=== PATIENT | male | born 1950 | race Caucasian/White ===

== ENCOUNTER 2023-12-12 12:40 | Inpatient (IN) | payer BC, MEDICARE, SELFPAY ==
[2023-12-12 13:24] LABS: #Basophils Less than 0.03 10x3/uL (0.0-0.2); %Basophils 0.2 % (0.0-1.0); %Eosinophils 0.7 % (0.0-10.0); %Lymphocytes 8.4 % (21.0-51.0); %Monocytes 18.2 % (0.0-10.0); %Neutrophils 72.1 % (42.0-75.0); Hematocrit 41.3 % (42.0-52.0); Hemoglobin 14.8 g/dL (14.0-18.0); Mean Corpuscular HGB CONC 35.8 g/dL (32.0-36.0); Mean Corpuscular Hemoglobin 35.7 pg (27.0-31.0); Mean Corpuscular Volume 99.5 fL (78.0-98.0); Mean Platelet Volume 9.8 fL (7.4-10.4); Platelet Count 192 10x3/uL (130-400); RBC Distribution Width 13.5 % (11.5-14.5); Red Blood Cell (RBC) Count 4.15 mill/uL (4.70-6.10)
[2023-12-12 13:39] LABS: ALT (SGPT) 27 U/L (8-55); AST (SGOT) 41 U/L (5-34); Albumin 3.2 g/dL (3.4-4.8); Alkaline Phosphatase 88 U/L (40-110); Anion Gap 20 mmol/L (10-20); BUN (Urea Nitrogen) 31 mg/dL (8.4-25.7); Bilirubin, Total 1.3 mg/dL (0.2-1.2); Calc. Creatinine Clearance 0 mL/min (70-130); Calcium 9.1 mg/dL (7.8-10.44); Carbon Dioxide 18 mmol/L (23-31); Chloride 98 mmol/L (98-107); Estimated GFR 71; Globulin 4.2 g/dL (2.4-3.5); Glucose 106 mg/dL (83-110); Potassium 4.1 mmol/L (3.5-5.1); Protein, Total 7.4 g/dL (5.8-8.1); Sodium 132 mmol/L (136-145)
[2023-12-12 13:42] LABS: Troponin I 0.041 ng/mL (< 0.028)
[2023-12-12 14:03] LABS: Magnesium 2.3 mg/dL (1.6-2.6)
[2023-12-12] MEDS ORDERED: Propofol 1,000 MG/100 ML VIAL IV ONE ×2 (14:08→15:52)
[2023-12-12] MEDS ORDERED: Ketamine In 0.9 % NaCl 50 MG/5 ML SYRINGE ONE (14:08)
[2023-12-12] MEDS ORDERED: PROPOFOL 20 ML ONE (14:22)
[2023-12-12] MEDS ORDERED: Lidocaine 1% w/Epinephrine 1:100K 20 ML VIAL ONE (14:42)
[2023-12-12] MEDS ORDERED: Etomidate 40 MG (20 mL) VIAL ONE (15:49)
[2023-12-12] MEDS ORDERED: Rocuronium Bromide 10 MG/ML (10ML VIAL) ONE (15:49)
[2023-12-12] MEDS ORDERED: Furosemide 40 MG (4 mL) VIAL ONE (16:10)
[2023-12-12] MEDS ORDERED: Dexamethasone 10 MG/ML VIAL ONE (16:14)
[2023-12-12] MEDS ORDERED: Fentanyl CADD 100 ML IV SCH (16:15)
[2023-12-12] MEDS ORDERED: fentaNYL 50 mcg/mL 1 mL Vial ONE (16:18)
[2023-12-12] MEDS ORDERED: Nitroglycerin 50 MG/250 ML BOT 250 ML ONE (16:18)
[2023-12-12 16:23] LABS: Actual Bicarbonate (HCO3a) 18.1 mEq/L (22-28); Analyzer IN Cardio ER; Base Excess (BEa) -7.7 mEq/L (-2.0 to +3.0); CO2 Tension 38.2 mmHg (35.0-45.0); Carboxyhemoglobin (COHb) 0.9 gm% (0.0-3.0); Hematocrit-ABG 42 % (42.0-52.0); Hemoglobin (Hb) 14.2 g/dL (14.0-18.0); Potassium - ABG Lab 3.87 mmol/L (3.70-5.30); pH, Arterial 7.294 (7.35-7.45)
[2023-12-12 16:26] LABS: Puncture Site Right Radial
[2023-12-12] MEDS ORDERED: traMADol HCl 50 MG TAB PO PRN (17:34)
[2023-12-12] MEDS ORDERED: Morphine 2 MG/ML VIAL SLOW IVP PRN ×2 (17:34→19:30)
[2023-12-12] MEDS: Propofol 1,000 MG/100 ML VIAL IV PRN (19:00)
[2023-12-12] MEDS: NOREPINEPHRINE 8 MG/250 ML-D5W 250 ML ONE (19:10)
[2023-12-12] MEDS: Sodium Chloride 0.9% 1,000 ML IV SCH (19:10)
[2023-12-12] MEDS ORDERED: Ventilator Sedation Protocol FS SCH (19:23)
[2023-12-12] MEDS ORDERED: Electrolyte Replacement Protocol FS SCH (19:26)
[2023-12-12] MEDS ORDERED: Dextrose 5% in Water 1,000 ML IV PRN (19:26)
[2023-12-12] MEDS ORDERED: Glucagon 1 MG/ML KIT IM PRN (19:26)
[2023-12-12] MEDS ORDERED: NOREPINEPHRINE 8 MG/250 ML-D5W 250 ML IVPB SCH (19:30)
[2023-12-12] MEDS ORDERED: Propofol BOLUS 1,000 MG/100 ML VIAL IV PRN (19:30)
[2023-12-12] MEDS ORDERED: DISCONTINUE PREVIOUS NARCOTIC PAIN MEDICATIONS AND BENZODIAZEPINES FS SCH (19:30)
[2023-12-12] MEDS ORDERED: Morphine 4 MG/ML VIAL SLOW IVP PRN (19:30)
[2023-12-12] MEDS ORDERED: Fentanyl BOLUS 250 ML IVPB PRN (19:30)
[2023-12-12] MEDS: Lactated Ringer's 1,000 ML IV SCH (19:53)
[2023-12-12] MEDS: Famotidine 20 MG TAB PER TUBE SCH (21:03)
[2023-12-13] MEDS: Ipratropium/Albuterol 3 ML NEB NEB SCH (00:49)
[2023-12-13 04:03] LABS: #Basophils Less than 0.03 10x3/uL (0.0-0.2); #Eosinphils Less than 0.03 10x3/uL (0.0-0.7); %Basophils 0.2 % (0.0-1.0); %Lymphocytes 9.4 % (21.0-51.0); %Monocytes 12.6 % (0.0-10.0); %Neutrophils 77.2 % (42.0-75.0); Hematocrit 36.9 % (42.0-52.0); Hemoglobin 12.7 g/dL (14.0-18.0); Mean Corpuscular HGB CONC 34.4 g/dL (32.0-36.0); Mean Corpuscular Hemoglobin 35.1 pg (27.0-31.0); Mean Corpuscular Volume 101.9 fL (78.0-98.0); Mean Platelet Volume 10.5 fL (7.4-10.4); Platelet Count 171 10x3/uL (130-400); RBC Distribution Width 13.8 % (11.5-14.5); Red Blood Cell (RBC) Count 3.62 mill/uL (4.70-6.10)
[2023-12-13 04:41] LABS: Anion Gap 15 mmol/L (10-20); BUN (Urea Nitrogen) 30 mg/dL (8.4-25.7); Calc. Creatinine Clearance 21 mL/min (70-130); Carbon Dioxide 20 mmol/L (23-31); Chloride 103 mmol/L (98-107); Estimated GFR 77; Glucose 168 mg/dL (83-110); Sodium 134 mmol/L (136-145)
[2023-12-13 07:14] LABS: Actual Bicarbonate (HCO3a) 23.2 mEq/L (22-28); Base Excess (BEa) -0.5 mEq/L (-2.0 to +3.0); CO2 Tension 35.4 mmHg (35.0-45.0); Calcium, Ionized (arterial) 1.08 mmol/L (1.12-1.30); Carboxyhemoglobin (COHb) 0.3 gm% (0.0-3.0); Hematocrit-ABG 38 % (42.0-52.0); Hemoglobin (Hb) 12.8 g/dL (14.0-18.0); pH, Arterial 7.435 (7.35-7.45)
[2023-12-13 07:36] LABS: Puncture Site RBA
[2023-12-13] MEDS: Mometasone 200 MCG/Formoterol 5 MCG 120 PUFF INHALER INH SCH (07:47)
[2023-12-13] MEDS: Magnesium 2 GM/50 ML(in water) 2 GM in Premix 1 BAG IVPB SCH (09:10)
[2023-12-13] MEDS: Lidocaine 1% (PF) 30 ML VIAL FS SCH (11:50)
[2023-12-13] MEDS: Famotidine 20 MG TAB PER TUBE SCH (21:11)
[2023-12-13] MEDS: Acetaminophen 325 MG TAB PO PRN (21:13)
[2023-12-13] MEDS: Fentanyl CADD 100 ML IV SCH (21:30)
[2023-12-13] MEDS: NOREPINEPHRINE 8 MG/250 ML-D5W 250 ML IVPB SCH (22:20)
[2023-12-13] MEDS: NOREPINEPHRINE 8 MG/250 ML-D5W 250 ML ONE (22:23)
[2023-12-13] MEDS: Lactated Ringer's 500 ML IV SCH (22:55)
[2023-12-14] MEDS ORDERED: CEFAZOLIN 2 GM in Sodium Chloride 0.9% 100 ML IVPB SCH (00:01)
[2023-12-14 02:00] LABS: INR-International Normal Ratio 1.3; PTT 33.6 sec (22.9-36.1); Prothrombin Time 16.2 sec (12.0-14.7)
[2023-12-14 02:06] LABS: Hemoglobin A1c 5.1 % (4.0-6.0)
[2023-12-14] MEDS: Lorazepam 2 MG/ML VIAL SLOW IVP PRN (02:49)
[2023-12-14] MEDS: Lactated Ringer's 500 ML IV SCH ×2 (04:30→19:50)
[2023-12-14 04:31] LABS: Hematocrit 36.8 % (42.0-52.0); Hemoglobin 13.1 g/dL (14.0-18.0); Mean Corpuscular HGB CONC 35.6 g/dL (32.0-36.0); Mean Corpuscular Hemoglobin 35.7 pg (27.0-31.0); Mean Corpuscular Volume 100.3 fL (78.0-98.0); Mean Platelet Volume 10.8 fL (7.4-10.4); Platelet Count 179 10x3/uL (130-400); RBC Distribution Width 14.1 % (11.5-14.5); Red Blood Cell (RBC) Count 3.67 mill/uL (4.70-6.10)
[2023-12-14 05:34] LABS: Anisocytosis SLIGHT = 6-15 cells HPF (0-5); Band 16 % (5-11); Burr Cells MODERATE= 6-15 cells HPF (0-1); Eosinophils 2 % (0-10); Large Platelets 7.3 % (0-5); Lymphocytes 8 % (21-51); Macrocytosis MODERATE=16-30 cells HPF (0-5); Monocytes 13 % (0-10); Neutrophil 62 % (42-75); Platelet Adequacy Comment Platelets Normal; Poikilocytosis SLIGHT = 6-15 cells HPF (0-5); Polychromasia SLIGHT = 2-3 cells HPF (0-2); Smudge Cells 19.3 %; Vacuoles SLIGHT
[2023-12-14 06:40] LABS: ALT (SGPT) 17 U/L (8-55); AST (SGOT) 27 U/L (5-34); Alkaline Phosphatase 63 U/L (40-110); Anion Gap 15 mmol/L (10-20); BUN (Urea Nitrogen) 21 mg/dL (8.4-25.7); Bilirubin, Total 0.8 mg/dL (0.2-1.2); Calc. Creatinine Clearance 62 mL/min (70-130); Calcium 7.8 mg/dL (7.8-10.44); Carbon Dioxide 20 mmol/L (23-31); Chloride 104 mmol/L (98-107); Estimated GFR 91; Globulin 3.3 g/dL (2.4-3.5); Glucose 98 mg/dL (83-110); Magnesium 2.3 mg/dL (1.6-2.6); Potassium 3.5 mmol/L (3.5-5.1); Protein, Total 5.3 g/dL (5.8-8.1); Sodium 135 mmol/L (136-145)
[2023-12-14] MEDS ORDERED: Bupivacaine PF 0.5% 30 ML VIAL ONE (07:01)
[2023-12-14] MEDS ORDERED: EPINEPHrine 1 MG/10 ML Abboject SYRINGE ONE (07:01)
[2023-12-14] MEDS ORDERED: EPINEPHrine 1 MG/ML VIAL ONE (07:02)
[2023-12-14] MEDS ORDERED: Rocuronium Bromide 10 MG/ML (10ML VIAL) ONE (07:35)
[2023-12-14] MEDS ORDERED: Fentanyl 250 MCG/5 ML VIAL ONE (07:35)
[2023-12-14] MEDS ORDERED: Midazolam HCl 2 mg/2 ml Vial ONE ×2 (07:35→09:39)
[2023-12-14] MEDS: Famotidine 20 MG TAB PER TUBE SCH (08:00)
[2023-12-14] MEDS ORDERED: CEFAZOLIN 1 GM VIAL ONE (08:36)
[2023-12-14] MEDS ORDERED: Promethazine HCl 25 MG/ML VIAL IM PRN (09:40)
[2023-12-14] MEDS ORDERED: traMADol HCl 50 MG TAB PO PRN (09:40)
[2023-12-14] MEDS ORDERED: Ipratropium/Albuterol 3 ML NEB NEB PRN (09:40)
[2023-12-14 11:09] LABS: O2 Tension (PaO2), arterial 57.2 mmHg (> 70.0)
[2023-12-14] MEDS: Potassium Chloride 20 MEQ in Premix 1 BAG IVPB SCH (11:10)
[2023-12-14] MEDS: fentaNYL 50 mcg/mL 1 mL Vial SLOW IVP PRN (14:02)
[2023-12-14] MEDS: CEFAZOLIN 2 GM in Sodium Chloride 0.9% 100 ML IVPB SCH (16:21)
[2023-12-14] MEDS: Thiamine HCl 200 MG/2 ML VIAL SLOW IVP SCH (21:13)
[2023-12-14] MEDS: SODIUM CHLORIDE IV SCH (21:38)
[2023-12-14] MEDS: ADMIXTURE FEE IV SCH (21:38)
[2023-12-14] MEDS: MULTIVITAMINS IV SCH (21:38)
[2023-12-14] MEDS: Multivit, Adult Inj 10 ML VIAL IV SCH (22:08)
[2023-12-15] MEDS ORDERED: PROPOFOL 20 ML ONE (02:43)
[2023-12-15 04:52] LABS: Hemoglobin 11.2 g/dL (14.0-18.0); Mean Corpuscular HGB CONC 33.9 g/dL (32.0-36.0); Mean Corpuscular Hemoglobin 34.9 pg (27.0-31.0); Mean Corpuscular Volume 102.8 fL (78.0-98.0); Mean Platelet Volume 10.9 fL (7.4-10.4); Platelet Count 172 10x3/uL (130-400); RBC Distribution Width 14.3 % (11.5-14.5); Red Blood Cell (RBC) Count 3.21 mill/uL (4.70-6.10)
[2023-12-15 05:07] LABS: Anion Gap 11 mmol/L (10-20); BUN (Urea Nitrogen) 17 mg/dL (8.4-25.7); Calc. Creatinine Clearance 70 mL/min (70-130); Calcium 7.8 mg/dL (7.8-10.44); Carbon Dioxide 23 mmol/L (23-31); Chloride 106 mmol/L (98-107); Estimated GFR 93; Glucose 113 mg/dL (83-110); Potassium 3.9 mmol/L (3.5-5.1); Sodium 136 mmol/L (136-145)
[2023-12-15 05:47] LABS: Band 51 % (5-11); Hypochromia SLIGHT = 6-15 cells HPF (0-5); Large Platelets 2.8 % (0-5); Lymphocytes 3 % (21-51); Macrocytosis SLIGHT = 6-15 cells HPF (0-5); Monocytes 7 % (0-10); Neutrophil 40 % (42-75); Platelet Adequacy Comment Platelets Normal; Polychromasia MODERATE = 3-4 cells HPF (0-2)
[2023-12-15] MEDS: Folic Acid 0.4 MG in Admixture Fee 1 EACH SC SCH (08:17)
[2023-12-15] MEDS ORDERED: Folic Acid 5 MG/ML MDV SC SCH (09:00)
[2023-12-15] MEDS: DC Sedation Protocol FS ONE (16:46)
[2023-12-15] MEDS ORDERED: Oxazepam 10 MG CAP PO SCH (17:00)
[2023-12-16] MEDS: Dextrose 50% Abboject 50 ML SYRINGE SLOW IVP PRN (04:37)
[2023-12-16] MEDS: fentaNYL 50 mcg/mL 1 mL Vial SLOW IVP PRN (05:12)
[2023-12-16] MEDS: Enoxaparin 40 MG (0.4 mL) SYRINGE SC SCH (08:55)
[2023-12-16 10:46] LABS: Actual Bicarbonate (HCO3a) 26.7 mEq/L (22-28); CO2 Tension 42.1 mmHg (35.0-45.0); Calcium, Ionized (arterial) 1.14 mmol/L (1.12-1.30); Carboxyhemoglobin (COHb) 0.6 gm% (0.0-3.0); Hematocrit-ABG 36 % (42.0-52.0); Hemoglobin (Hb) 12.3 g/dL (14.0-18.0); Potassium - ABG Lab 3.98 mmol/L (3.70-5.30)
[2023-12-16 10:48] LABS: Puncture Site LRA
[2023-12-16 10:49] LABS: ALV-art Gradient 205.225 mmHg (0-20)
[2023-12-16] MEDS: Piperacillin/Tazobactam 3.375 GM in Sodium Chloride 0.9% 100 ML IVPB SCH ×3 (11:37→15:01)
[2023-12-16] MEDS: Famotidine/PF 20 mg/2ml Vial SLOW IVP SCH ×2 (11:53→21:09)
[2023-12-16] MEDS: Ondansetron PF 4 MG/2 ML Vial IVP PRN (16:24)
[2023-12-16] MEDS: Senokot S 8.6-50 MG TAB PO SCH (21:09)
[2023-12-16] MEDS: Albumin 25% 25 GM (100 mL) BOT IVPB SCH (23:03)
[2023-12-17 04:11] LABS: Hemoglobin 10.5 g/dL (14.0-18.0); Mean Corpuscular HGB CONC 33.9 g/dL (32.0-36.0); Mean Corpuscular Hemoglobin 34.4 pg (27.0-31.0); Mean Corpuscular Volume 101.6 fL (78.0-98.0); Mean Platelet Volume 10.6 fL (7.4-10.4); Platelet Count 141 10x3/uL (130-400); RBC Distribution Width 14.6 % (11.5-14.5); Red Blood Cell (RBC) Count 3.05 mill/uL (4.70-6.10)
[2023-12-17 04:54] LABS: Band 13 % (5-11); Lymphocytes 3 % (21-51); Monocytes 8 % (0-10); Neutrophil 76 % (42-75); Platelet Adequacy Comment Platelets Normal; Polychromasia SLIGHT = 2-3 cells HPF (0-2)
[2023-12-17 07:28] LABS: Phosphorus 3.5 mg/dL (2.3-4.7)
[2023-12-17 07:32] LABS: Anion Gap 12 mmol/L (10-20); BUN (Urea Nitrogen) 19 mg/dL (8.4-25.7); Calc. Creatinine Clearance 89 mL/min (70-130); Calcium 8.2 mg/dL (7.8-10.44); Carbon Dioxide 27 mmol/L (23-31); Chloride 107 mmol/L (98-107); Estimated GFR 96; Glucose 113 mg/dL (83-110); Magnesium 2.1 mg/dL (1.6-2.6); Potassium 4.6 mmol/L (3.5-5.1); Sodium 141 mmol/L (136-145)
[2023-12-17] MEDS: Polyethylene Glycol 3350 17 GM Packet PO SCH (08:29)
[2023-12-17 12:55] VITALS: BMI 24.5
[2023-12-17] MEDS: Albumin 25% 25 GM (100 mL) BOT IVPB SCH (13:49)
[2023-12-17] MEDS: Scopolamine 1 mg/72 hour Patch TD SCH (15:59)
[2023-12-17 17:35] VITALS: BP 96/53
[2023-12-18 05:11] VITALS: BMI 24.2
[2023-12-18 09:13] VITALS: TEMP 98.8
[2023-12-18] MEDS ORDERED: Lactated Ringer's 1,000 ML IV SCH (10:55)
[2023-12-18] MEDS ORDERED: Morphine 2 MG/ML VIAL SLOW IVP PRN (10:55)
[2023-12-18] MEDS ORDERED: methylPREDNISolone Sod Succ/PF 125 MG/2 ML VIAL IVP SCH (11:15)
[2023-12-18] MEDS: Morphine 4 MG/ML VIAL ONE (11:17)
[2023-12-18] MEDS: Magnesium 2 GM/50 ML(in water) 2 GM in Premix 1 BAG IVPB SCH (11:35)
[2023-12-18] MEDS: Furosemide 40 MG (4 mL) VIAL SLOW IVP SCH (11:35)
[2023-12-18] MEDS: Morphine 4 MG/ML VIAL SLOW IVP SCH (11:35)
[2023-12-18] MEDS: Lorazepam 2 MG/ML VIAL SLOW IVP SCH (11:39)
[2023-12-18] MEDS: Morphine 4 MG/ML VIAL SLOW IVP PRN (11:39)
[2023-12-18] MEDS: GLYCOPYRROLATE/PF 0.2 MG/ML VIAL SLOW IVP SCH (11:51)
[2023-12-18] MEDS ORDERED: Ipratropium/Albuterol 3 ML NEB NEB SCH (14:30)
[2023-12-18] MEDS ORDERED: methylPREDNISolone Sod Succ 40 MG VIAL IVP SCH (18:00)
== END 2023-12-18 16:00 | disposition expired | DRG 163 ==
LOC: ERS 12:40 → CCU 17:34
PROVIDERS: ADMIT Student in an Organized Health Care Education/Training Program; ATTEND Student in an Organized Health Care Education/Training Program
PROC: 5A1945Z Respiratory Ventilation, 24-96 Consecutive Hours (ICD-10-PCS; 2023-12-12)
PROC: 0T9B70Z Drainage of Bladder with Drainage Device, Via Natural or Artificial Opening (ICD-10-PCS; 2023-12-12)
PROC: 0BH17EZ Insertion of Endotracheal Airway into Trachea, Via Natural or Artificial Opening (ICD-10-PCS; 2023-12-12)
PROC: 0DH67UZ Insertion of Feeding Device into Stomach, Via Natural or Artificial Opening (ICD-10-PCS; 2023-12-12)
PROC: 0W9B30Z Drainage of Left Pleural Cavity with Drainage Device, Percutaneous Approach (ICD-10-PCS; 2023-12-12)
PROC: 4A133R1 Monitoring of Arterial Saturation, Peripheral, Percutaneous Approach (ICD-10-PCS; 2023-12-12)
PROC: 3E033XZ Introduction of Vasopressor into Peripheral Vein, Percutaneous Approach (ICD-10-PCS; 2023-12-12)
PROC: 0BBG4ZZ Excision of Left Upper Lung Lobe, Percutaneous Endoscopic Approach (ICD-10-PCS; principal; 2023-12-14)
PROC: 0B9G8ZX Drainage of Left Upper Lung Lobe, Via Natural or Artificial Opening Endoscopic, Diagnostic (ICD-10-PCS; 2023-12-14)
PROC: 5A0945A Assistance with Respiratory Ventilation, 24-96 Consecutive Hours, High Flow/Velocity Cannula (ICD-10-PCS; 2023-12-16)
PROC: 30233J1 Transfusion of Nonautologous Serum Albumin into Peripheral Vein, Percutaneous Approach (ICD-10-PCS; 2023-12-17)
DX: S27.0XXA Traumatic pneumothorax, initial encounter (principal); J96.01 Acute respiratory failure with hypoxia; S27.339A Laceration of lung, unspecified, initial encounter; S22.42XA Multiple fractures of ribs, left side, initial encounter for closed fracture; J44.1 Chronic obstructive pulmonary disease with (acute) exacerbation; S22.32XA Fracture of one rib, left side, initial encounter for closed fracture; Z51.5 Encounter for palliative care; Z66 Do not resuscitate; E78.5 Hyperlipidemia, unspecified; I25.10 Atherosclerotic heart disease of native coronary artery without angina pectoris; K21.9 Gastro-esophageal reflux disease without esophagitis; F17.210 Nicotine dependence, cigarettes, uncomplicated; W18.30XA Fall on same level, unspecified, initial encounter; I71.40 Abdominal aortic aneurysm, without rupture, unspecified; Z96.641 Presence of right artificial hip joint; Z90.49 Acquired absence of other specified parts of digestive tract; Z98.890 Other specified postprocedural states; Z79.82 Long term (current) use of aspirin; Z79.899 Other long term (current) drug therapy; D72.829 Elevated white blood cell count, unspecified; Z95.5 Presence of coronary angioplasty implant and graft
CPT/HCPCS: 31500; 32551; 36415; 36416; 36600; 51702; 70450; 71045; 71250; 72125; 74018; 74177; 80048; 80053; 82805; 83036; 83605; 83735; 83880; 84100; 84484; 85025; 85610; 85730; 86850; 86900; 86901; 87070; 87077; 87205; 88307; 93005; 94002; 94003; 94640; 94660; 96374; 99152; A4649; J0171; J0665; J0690; J1100; J1650; J1940; J2001; J2060; J2250; J2270; J2405; J2543; J2704; J3010; J3411; J3475; J3480; J3490; J7030; J7050; J7120; J7620; J7999; P9047; S0028